=== PATIENT | male | born 1965 | race Caucasian/White ===

== ENCOUNTER → 2020-08-16 | Outpatient (CLI) | payer MEDICAID | LOC: ZCOL.LAB 16:32 | DX: E13.621 Other specified diabetes mellitus with foot ulcer (principal) ==

== ENCOUNTER → 2021-03-15 | Outpatient (CLI) | payer MEDICAID | LOC: ZCOL.LAB 16:57 | DX: B95.7 Other staphylococcus as the cause of diseases classified elsewhere (principal) ==